=== PATIENT | female | born 1980 | race Caucasian/White ===

== ENCOUNTER 2017-02-24 11:32 | Emergency (ER) | payer OTHER | END 2017-02-24 12:21 | disposition home or self-care (01) | LOC: PHEFT 11:32 | DX: J06.9 Acute upper respiratory infection, unspecified (principal) | CPT/HCPCS: 99284 ==

== ENCOUNTER 2017-03-22 20:12 | Emergency (ER) | payer OTHER ==
[~2017-03-22] VITALS: Ht 167.6 cm; Wt 125.8 kg
[~2017-03-22 20:12] MED LIST: FLUT1SPR5 EACH NARE; PROMSYP3 PO
[2017-03-22 20:17] VITALS: BP 196/94; PULSE 84; RESP 16; TEMP 97.8; O2SAT 96
[2017-03-22] MEDS ORDERED: CEPH-460 PO (20:49)
[2017-03-22] MEDS ORDERED: PRED50 PO (20:49)
--- NOTE | 2017-03-22 20:49 | PD ---
HPI Chief Complaint: Skin Problem Time Seen by Provider: 20:36 Travel History International Travel<30 days: No Contact w/Intl Traveler<30days: No Traveled to known affect area: No History of Present Illness HPI Patient is a 37-year-old female with history of rosacea, who comes in complaining of a rosacea flare. 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 She is on a heavy-duty steroid cream for the rosacea and has been using it as directed. She called her tape cutting machine operator who suggested she get checked out to make sure there is no infection. She says this is been going on for the past 2 or 3 weeks. She reports increased redness and bumps to her face. She says she has had increased itching as well. She denies any fever or chills. She has not had any wounds or bites to her face. She denies any new soaps or lotions. Severity is mild to moderate. PFSH Past Medical History Diminished Hearing: No Integumentary: Yes Immunizations Current: No Tetanus Vaccination: > 5 Years Influenza Vaccination: No ?: Not LMP: IUD Past Surgical History Other Surgery: Yes (rt breast lumpectomy) Social History Alcohol Use: Yes (occ) Tobacco Use: No Substance Use: No Allergies-Medications (Allergen,Severity, Reaction): Coded Allergies: No Known Allergies (Unverified , 03/22/17) Reported Meds & Prescriptions Reported Meds & Active Scripts Active No Active Prescriptions or Reported Medications Review of Systems General / Constitutional: No: Fever, Chills HENT: No: Headaches, Congestion Respiratory: No: Shortness of Breath Gastrointestinal: No: Nausea, Vomiting Musculoskeletal: No: Myalgias Skin: Positive Rash, Positive Change in Pigmentation Neurologic: No: Weakness, Dizziness Physical Exam Narrative GENERAL: Awake and alert, no acute distress. SKIN: Focused skin assessment warm/dry. Erythema diffusely across the face, with small raised bumps. There are no wounds. HEAD: Atraumatic. Normocephalic. EYES: Pupils equal and round. No scleral icterus. ENT: Mucous membranes pink and moist. CARDIOVASCULAR: Regular rate and rhythm. No murmur appreciated. RESPIRATORY: No accessory muscle use. Clear to auscultation. Breath sounds equal bilaterally. MUSCULOSKELETAL: No obvious deformities. No clubbing. No cyanosis. No edema. NEUROLOGICAL: Awake and alert. No obvious cranial nerve deficits. Motor grossly within normal limits. Normal speech. Data Data Last Documented VS Vital Signs Date Time Temp Pulse Resp B/P (MAP) Pulse Ox O2 Delivery O2 Flow Rate FiO2 03/22/17 20:17 97.8 84 16 196/94 (128) 96 MDM Medical Decision Making Medical Screen Exam Complete: Yes Emergency Medical Condition: Yes Differential Diagnosis Allergic reaction versus worsening rosacea versus cellulitis Narrative Course Patient is a 37-year-old female who comes in complaining of increased redness, itching, bumps to her face. Exam shows diffuse redness and warmth to the face. Patient states she is trying to go see a tape cutting machine operator, but her insurance is not accepted here. We discussed that she is already on strong steroid cream. She is offered a prescription for a short course of prednisone as well as Keflex , though I think this is mostly the rosacea and not cellulitis. She is advised to take Benadryl for the itching. Advised to follow-up with dermatology. Advised to return to the ED as needed for any worsening symptoms. She is comfortable with this plan at this time. Diagnosis Primary Impression: Rosacea Patient Instructions: General Instructions, Rosacea (ED) Additional Instructions: Follow-up with dermatology. Take all of the antibiotics. Take Benadryl as needed for itching. Return to the ED as needed for any worsening symptoms. Scripts Cephalexin (Keflex) 500 Mg Capsule 500 MG PO Q6H for Infection for 7 Days, #28 CAP 0 Refills Prov: Gema Marino MD 03/22/17 Prednisone (Prednisone) 50 Mg Tab 50 MG PO DAILY for 4 Days, #4 TAB 0 Refills Prov: Gema Marino MD 03/22/17 Disposition: 01 DISCHARGE HOME Condition: Stable Gema Marino MD Mar 22, 2017 20:49
[2017-03-22 20:56] VITALS: BP 165/95
== END 2017-03-22 21:03 | disposition home or self-care (01) ==
LOC: PHED 20:12 → PHEFT 21:03
DX: L71.9 Rosacea, unspecified (principal)
CPT/HCPCS: 99283